=== PATIENT | female | born 1955 | race Caucasian/White ===

== ENCOUNTER → 2016-12-05 | Outpatient (CLI) | payer BC ==
[2014-04-18 10:15] VITALS: BP 139/85
[~2016-12-05] MED LIST: HYZAAR 25 MG-101 TAB PO; METFORMIN500 MG PO; NORCO 325 MG-51 TAB PO; ZOCOR 40MG40 MG PO
== END ==
LOC: LAB 07:53
DX: E11.9 Type 2 diabetes mellitus without complications (principal); I10 Essential (primary) hypertension

== ENCOUNTER → 2016-12-18 | Outpatient (CLI) | payer BC ==
[2014-04-18 10:15] VITALS: BP 139/85
== END ==
LOC: MAMMO 16:00
DX: Z12.31 Encounter for screening mammogram for malignant neoplasm of breast (principal)
CPT/HCPCS: G0202

== ENCOUNTER → 2016-12-30 | Outpatient (CLI) | payer BC ==
[2014-04-18 10:15] VITALS: BP 139/85
== END ==
LOC: RAD 07:06 → MAMMO 07:06
DX: R92.2 Inconclusive mammogram (principal)

== ENCOUNTER → 2018-02-04 | Outpatient (CLI) | payer BC ==
[2014-04-18 10:15] VITALS: BP 139/85
== END ==
LOC: MAMMO 12:52
DX: Z12.31 Encounter for screening mammogram for malignant neoplasm of breast (principal); N63.20 Unspecified lump in the left breast, unspecified quadrant

== ENCOUNTER → 2018-02-09 | Outpatient (CLI) | payer BC ==
[2014-04-18 10:15] VITALS: BP 139/85
== END ==
LOC: MAMMO 07:07
DX: N60.02 Solitary cyst of left breast (principal)

== ENCOUNTER → 2020-03-15 | Outpatient (CLI) | payer BC ==
[2014-04-18 10:15] VITALS: BP 139/85
== END ==
LOC: MAMMO 03-08 13:00
DX: Z00.00 Encounter for general adult medical examination without abnormal findings (principal); Z12.31 Encounter for screening mammogram for malignant neoplasm of breast

== ENCOUNTER → 2022-03-13 | Outpatient (CLI) | payer BC | LOC: MAMMO 15:39 | DX: Z12.31 Encounter for screening mammogram for malignant neoplasm of breast (principal) ==

== ENCOUNTER → 2022-08-20 | Outpatient (CLI) | payer MEDICARE, BC | LOC: RAD 10:40 | DX: M19.011 Primary osteoarthritis, right shoulder (principal); M51.37 Other intervertebral disc degeneration, lumbosacral region ==

== ENCOUNTER → 2023-01-29 | Outpatient (CLI) | payer MEDICARE, BC ==
[2023-01-29 10:07] LABS: ALBUMIN 3.9 g/dL (3.4-4.8); POTASSIUM 3.7 mmol/L (3.5-5.1)
[2023-01-29 10:08] LABS: CALCIUM 10.5 mg/dL (8.3-10.5)
[2023-01-29 10:09] LABS: TOTAL PROTEIN 6.9 g/dL (6.2-8.1)
[2023-01-29 10:11] LABS: TOTAL BILIRUBIN 0.4 mg/dL (0.2-1.2)
== END ==
LOC: LAB 09:46
PROVIDERS: Physician Assistant
DX: E11.9 Type 2 diabetes mellitus without complications (principal); I10 Essential (primary) hypertension; E78.2 Mixed hyperlipidemia

== ENCOUNTER → 2023-03-06 | Outpatient (CLI) | payer MEDICARE, BC | LOC: MAMMO 09:01 | DX: Z13.820 Encounter for screening for osteoporosis (principal); Z12.31 Encounter for screening mammogram for malignant neoplasm of breast; M85.80 Other specified disorders of bone density and structure, unspecified site ==

== ENCOUNTER → 2023-08-29 | Outpatient (CLI) | payer MEDICARE, BC | LOC: LAB 16:11 | DX: L03.90 Cellulitis, unspecified (principal) ==

== ENCOUNTER → 2023-10-09 | Outpatient (CLI) | payer MEDICARE, BC | LOC: LAB 12:30 | DX: E11.9 Type 2 diabetes mellitus without complications (principal) ==

== ENCOUNTER → 2023-11-28 | Outpatient (CLI) | payer MEDICARE, BC ==
[2023-11-28 08:29] LABS: BASO # 0.03 K/mm3 (0.02-0.10); EOS # 0.18 K/mm3 (0.04-0.40); EOS % 3.6 % (1.0-5.0); HEMATOCRIT 38.4 % (37.0-47.0); HEMOGLOBIN 12.6 g/dL (12.5-16.0); LYMPH# 1.57 K/mm3 (1.50-4.00); MEAN CELL VOLUME 95 fl (78-100); MEAN CORPUSCULAR HEMOGLOBIN 31 pg (27-31); MEAN CORPUSCULAR HGB CONC 33 g/dL (33-37); MEAN PLATELET VOLUME 9.7 fl (7.4-10.4); MONO # 0.43 K/mm3 (0.20-0.80); NEU # 2.85 K/mm3 (1.40-6.50); PLATELET COUNT 228 K/mm3 (130-400); RED BLOOD COUNT 4.05 M/mm3 (4.10-5.30); RED CELL DISTRIBUTION WIDTH 12.3 % (11.5-14.5); WHITE BLOOD COUNT 5.1 K/mm3 (4.8-10.8)
[2023-11-28 08:36] LABS: ALBUMIN 3.9 g/dL (3.4-4.8)
[2023-11-28 08:37] LABS: CALCIUM 9.4 mg/dL (8.3-10.5)
[2023-11-28 08:40] LABS: TOTAL BILIRUBIN 0.6 mg/dL (0.2-1.2)
[2023-11-28 18:42] LABS: HEPATITIS C VIRUS ANTIBODY Negative (Negative)
== END ==
LOC: LAB 07:57
PROVIDERS: Physician Assistant
DX: Z13.29 Encounter for screening for other suspected endocrine disorder (principal); Z11.59 Encounter for screening for other viral diseases; Z11.4 Encounter for screening for human immunodeficiency virus [HIV]; I10 Essential (primary) hypertension; E78.2 Mixed hyperlipidemia; E11.9 Type 2 diabetes mellitus without complications; K90.9 Intestinal malabsorption, unspecified

== ENCOUNTER → 2024-03-08 | Outpatient (CLI) | payer MEDICARE, BC | LOC: MAMMO 13:30 | DX: Z12.31 Encounter for screening mammogram for malignant neoplasm of breast (principal) ==